=== PATIENT | male | born 1985 | race Caucasian/White ===

== ENCOUNTER 2021-11-05 18:33 | Emergency (ER) | payer BC ==
[~2021-11-05] VITALS: Ht 175.3 cm; Wt 75.0 kg
[2021-11-05 18:42] VITALS: TEMP 98.2
[2021-11-05 19:30] VITALS: BP 120/81; PULSE 80
== END 2021-11-05 19:35 | disposition home or self-care (01) ==
LOC: COL.ER 18:33
DX: R10.33 Periumbilical pain (principal); R11.10 Vomiting, unspecified